=== PATIENT | male | born 1970 | race Caucasian/White ===

== ENCOUNTER → 2019-06-16 | Outpatient (CLI) | payer BC ==
--- NOTE | 2019-06-16 12:06 | CT ---
EXAMINATION TYPE: CT sinus wo con DATE OF EXAM: 06/16/2019 COMPARISON: None HISTORY: Chronic sinusitis CT DLP: 566 mGycm CONTRAST: None The paranasal sinuses are examined in the axial plane at 2 mm thick sections. Reconstructed images i n the coronal plane were obtained. There is dental amalgam scatter artifact Mucosal thickening is through the maxillary sinuses bilaterally. Bilateral ethmoid air cell mucosal thickening is present within anterior mid and posterior ethmoid air cells. The sphenoid sinuses are clear. The frontal sinuses are clear. The septum is evaluated. There is septal deviation to the left. The left ostiomeatal unit is patent. The right ostiomeatal unit is obstructed. IMPRESSIONS: 1. Diffuse mucosal thickening through ethmoid air cells and maxillary sinuses. Findings may be relat ed to chronic sinusitis. Suspicious air-fluid levels are not evident. 2. Left septal deviation. 3. Obstruction of the right ostiomeatal unit.
== END | disposition home or self-care (01) ==
LOC: RADCTMAIN 11:09
PROVIDERS: ATTEND Otolaryngology
DX: J34.2 Deviated nasal septum (principal); J34.89 Other specified disorders of nose and nasal sinuses; J32.9 Chronic sinusitis, unspecified
CPT/HCPCS: 70486

== ENCOUNTER → 2019-07-16 | Day surgery (SDC) | payer BC ==
[2019-07-14 13:23] VITALS: BMI 38.0
[~2019-07-16] MED LIST: BACITRACIN 500 UNIT/GM OINT 28.4 GM TUBE TOPICAL ONE; DEXAMETHASONE SOD PHOS (MDV) 100 MG/10 ML VIAL ONE; DEXAMETHASONE SOD PHOSPHATE 10 MG/ML 1 ML VIAL IV ONE; DEXAMETHASONE SOD PHOSPHATE 4 MG/ML 1 ML VIAL IV ONE; FAMOTIDINE 20 MG/2 ML VIAL IV ONE; GLYCOPYRROLATE 0.2 MG/ML 2 ML VIAL ONE; HYDROcodone/APAP 7.5-325MG 1 EACH TAB PO ONE; HYDROmorphone 0.5 MG/0.5 ML SYRINGE IVP PRN; LACTATED RINGERS 1,000 ML IV SCH; LIDOCAINE 1% 20 ML VIAL (10MG/ML) FOR IV START INTRADERMA PRN; LIDOCAINE 1% INJ 10MG/ML (20 ML MDV) ONE; LIDOCAINE 1%-EPI 1:100,000 20 ML VIAL SUBMUCOSAL ONE; MIDAZOLAM 2 MG/2 ML VIAL IVP ONE; NEOSTIGMINE 1 MG/ML 10 ML VIAL ONE; ONDANSETRON 4 MG/2 ML VIAL IVP ONE; PHENYLEPHRINE-0.9% NACL SYG 1 MG/10 ML SYRINGE ONE; PROPOFOL 10 MG/ML 20 ML VIAL IV ONE; ROCURONIUM BROMIDE 10 MG/ML 10 ML VIAL IV ONE; SUCCINYLCHOLINE CHLORIDE 100 MG/5 ML SYR IV ONE; ceFAZolin 1,000 MG VIAL ONE; fentaNYL (PF) 50 MCG/ML 2 ML AMP ONE
[2019-07-16] MEDS: OXYMETAZOLINE 0.05% NASL SPRAY 1 SPRAY BOTTLE NASAL ONE ×5 (07:45→08:05)
[2019-07-16 07:57] LABS: Glucose,Whole Blood 170 mg/dL (75-99)
[2019-07-16] MEDS: ONDANSETRON 4 MG/2 ML VIAL IVP ONE ×2 (08:02→10:08)
--- NOTE | 2019-07-16 09:42 | P.OP ---
Date of Procedure: 07/16/19 Preoperative Diagnosis: Deviated nasal septum Inferior turbinate hypertrophy Chronic sinusitis Postoperative Diagnosis: Same Procedure(s) Performed: Deviated nasal septum Outfractured and submucous resection inferior turbinates Bilateral endoscopic sinus surgery including bilateral maxillary antrostomy with removal of tissue from maxillary sinuses, bilateral anterior and posterior ethmoidectomy, bilateral frontal sinus exploration with balloon sinus plasty and bilateral sphenoid sinus ostomy with balloon sinus plasty and exploration Anesthesia: POLYA Surgeon: Jerome Rodriguez Estimated Blood Loss (ml): 10 Pathology: other (Nasal septal bone and cartilage and sinus contents) Condition: stable Disposition: PACU Indications for Procedure: This 48-year-old white male whose had difficulties with chronic and recurrent sinusitis as well as chronic nasal airway obstruction and congestion computed tomography scan showed diffuse mucosal thickening in the frontal ethmoid maxillary and sphenoid sinuses Operative Findings: Nasal septum deviated to the left with inferior turbinate hypertrophy bilaterally and mucosal thickening throughout the ethmoid frontal and sphenoid sinuses as well as small polyps in the maxillary sinuses were removed the ostiomeatal complexes were obstructed bilaterally there were polyps throughout the ethmoid sinuses Description of Procedure: The patient was brought into the operative suite and placed in a supine position. The patient underwent induction of general anesthesia with oral endotracheal intubation without difficulty. The patient was prepped and draped in the usual aseptic fashion with the orbits in the operating field for monitoring to the case and the computed tomography scan was on the computer screen for review throughout the case. 1% lidocaine with 1 :100,000 epinephrine was infused submucosally into both sides of the nasal septum as well as the lateral nasal wall and anterior tips of the middle turbinates. While this was taking vasoconstrictive effect the inferior turbinates were infractured with [place] elevator and partial submucous resection of the inferior turbinates was performed with a portion of the submucosal soft tissue and the inferior turbinate bone removed with Coblation device. The inferior turbinates were then outfractured with the [place] elevator. A left hemitransfixion incision was then made with the mucoperichondrial and mucoperiosteal flap on the left elevated. The bony cartilaginous junction was disarticulated and the mucoperiosteal flap on the right was elevated. Bony nasal septal deformities were removed with Alexandru forceps and an inferior cartilaginous strip was removed leaving a full 1.5 cm caudal strut. Checking intranasally this corrected the nasoseptal deformities and the hemitransfixion incision was closed with a running 4-0 chromic suture. Full 0 endoscopic examination is performed bilaterally. Beginning on the left, the middle turbinate was medialized. The maxillary ostium was located with a ballpoint probe and an infundibulotomy was performed followed by uncinectomy. The maxillary antrostomy was enlarged at the expense of the anterior and posterior fontanelle taking care anteriorly not to injure the lacrimal bone. The maxillary sinus was evaluated with 30 and 70 endoscope .[Abnormal appearing tissue was removed from the maxillary sinus]. Anterior and posterior ethmoidectomy were then performed from anterior to posterior to the level of the skull base. The roof of the anterior ethmoid air cells were then cleaned from posterior to anterior using up-biting Blakesley forceps. A balloon sinuplasty of the frontal sinus was then performed using the entellus light guided technique. The frontal sinus was then explored with 30 endoscope.[Abnormal tissue was removed from the frontal sinus]. A balloon sinus plasty was then performed of the sphenoid sinus using the entellus light guided technique. The sphenoid sinus was then explored with 0 endoscope.[Abnormal tissue was removed from the sphenoid sinus]. Attention was then turned to the right where the procedures were followed as they had been on the left. [Nasopore nasal dressing was placed in the middle meatus bilaterally under direct visualization]. Bilateral Jones airway splints coated with bacitracin ointment were placed and sutured transseptally with a 4-0 nylon suture. The patient was suctioned in oral gastric fashion and was allowed to emerge from general anesthesia having tolerated procedure well and was extubated in the operating suite and transferred to the postoperative recovery area in satisfactory condition.
[2019-07-16 09:54] VITALS: TEMP 97
[2019-07-16 10:52] VITALS: RESP 18
[2019-07-16 11:07] LABS: Glucose,Whole Blood 217 mg/dL (75-99)
[2019-07-16 11:34] VITALS: BP 145/83; PULSE 79
== END | disposition home or self-care (01) ==
LOC: OR 07:01
PROVIDERS: ATTEND Otolaryngology
DX: J34.2 Deviated nasal septum (principal); J34.3 Hypertrophy of nasal turbinates; J32.9 Chronic sinusitis, unspecified; I10 Essential (primary) hypertension; E78.5 Hyperlipidemia, unspecified; K21.9 Gastro-esophageal reflux disease without esophagitis; E11.9 Type 2 diabetes mellitus without complications; E78.00 Pure hypercholesterolemia, unspecified; Z79.2 Long term (current) use of antibiotics; Z79.84 Long term (current) use of oral hypoglycemic drugs; Z79.899 Other long term (current) drug therapy
CPT/HCPCS: 30520; 30140; 31267; 31253; 31297; 88305; 88300; J2250; J1100 ×2; J2710; J2405; J0690; J2001; J3010; J2370; J0330; J2704; J1170; 88304

== ENCOUNTER → 2020-07-25 | Outpatient (CLI) | payer BC ==
--- NOTE | 2020-07-25 15:48 | MR ---
EXAMINATION TYPE: MR lumbar spine wo/w con DATE OF EXAM: 07/25/2020 COMPARISON: None HISTORY: Chronic LBP, BLE radiculopathy TECHNIQUE: Multiplanar, multisequence images of the lumbar spine were acquired utilizing 12.5 mL intravenous Carlos avist gadolinium contrast. L1-L2: Normal disc appearance without desiccation. No herniation, protrusion or disc bulging. No ca nal stenosis is present. Foramina are patent bilaterally. L2-L3: Circumferential posterior disc bulge causes minimal mass effect on the thecal sac. There is so me mild facet arthropathy change. L3-L4: Posterior broad-based disc bulge causes anterior mass effect on the thecal sac, no significant foraminal encroachment L4-L5: Mild posterior disc bulge contacts anterior thecal sac. Circumferential extension of endplate disc complex encroaches towards the right neural foramen. There is facet arthropathy. L5-S1: There is a posterior broad-based disc bulge contacts anterior thecal sac and proximal S1 nerve roots. Facet arthropathy is present. Circumferential extension endplate disc complex encroaches on t he neural foramina. Lumbar segments are intact. No paraspinal masses are identified. Conus medullaris has a normal appe arance. There is no significant spinal stenosis. Loss of disc height signal is present at interverteb ral levels especially L3-4, L5-S1, is multilevel spondylosis and endplate discogenic marrow signal ch corine. IMPRESSION: Degenerative disc disease, there is associated facet arthropathy. Correlate for S1 radiculopathies.
== END | disposition home or self-care (01) ==
LOC: RADMRIMAIN 10:27
PROVIDERS: ATTEND Nurse Practitioner Adult Health
DX: M51.36 Other intervertebral disc degeneration, lumbar region (principal); M47.816 Spondylosis without myelopathy or radiculopathy, lumbar region
CPT/HCPCS: 72158; A9585

== ENCOUNTER → 2020-10-15 | Outpatient (CLI) | payer BC ==
--- NOTE | 2020-10-15 12:41 | XR ---
EXAMINATION TYPE: XR chest 2V DATE OF EXAM: 10/15/2020 COMPARISON: NONE TECHNIQUE: PA and lateral views submitted. HISTORY: Presurgical FINDINGS: The lungs are clear and there is no pneumothorax, pleural effusion, or focal pneumonia. Heart size normal. No overt failure. Biapical pleural thickening. IMPRESSION: 1. No acute process.
== END | disposition home or self-care (01) ==
LOC: RADXRMAIN 12:18
PROVIDERS: ATTEND Nurse Practitioner Adult Health
DX: Z01.818 Encounter for other preprocedural examination (principal)
CPT/HCPCS: 71046

== ENCOUNTER → 2020-11-04 | Outpatient (CLI) | payer BC ==
--- NOTE | 2020-11-04 13:38 | XR ---
Lumbar spine with flexion and extension views HISTORY: Back pain 7 views lumbar spine There is no evident spondylolysis . Multilevel spondylosis is present. Minimal retrolisthesis grade 1 L3-4 of approximately 2 mm shows normalized alignment on flexion view, accentuation to 3 mm on exten jonna view. Retrolisthesis grade 1 at L4-5 shows accentuation of approximately 1 mm extension. There i s loss of disc height at intervertebral levels. Sclerosis is present in the posterior elements of the lower lumbar spine. Lumbar vertebral bodies show preserved height and bone mineralization. IMPRESSION: Degenerative disc disease and facet arthropathy, minimal slip and flexion and extension, listhesis as described L3-4, L4-5
== END | disposition home or self-care (01) ==
LOC: RADXRMAIN 09:48
PROVIDERS: ATTEND Specialist
DX: M51.16 Intervertebral disc disorders with radiculopathy, lumbar region (principal); M47.26 Other spondylosis with radiculopathy, lumbar region; M43.16 Spondylolisthesis, lumbar region
CPT/HCPCS: 72114

== ENCOUNTER → 2021-03-22 | Outpatient (CLI) | payer BC ==
--- NOTE | 2021-03-22 09:47 | CT ---
EXAMINATION TYPE: CT lumbar spine wo con DATE OF EXAM: 03/22/2021 COMPARISON: Plain film 11/04/2020, MR lumbar spine 07/25/2020 HISTORY: Spondylosis lumbar region CT DLP: 1155.80 mGycm Automated exposure control for dose reduction was used. An unenhanced CT of the lumbar spine was performed. Bone and soft tissue window settings are submitt ed as well as coronal and sagittal reconstructions. FINDINGS: There is been interval posterior fusion, L3-S1, intervertebral spacing blocks are present, there is a rtifact due to patient's hardware. Alignment is near-anatomic, minimal retrolisthesis grade 1 L3-4 as on prior exam. Loss of disc height at intervertebral levels especially L3-4, L5-S1 similar to prior exam. There are laminectomies present at L5 and L4. The left pedicle screw at L5 breaches the cortex and extends to the level of the psoas muscle on the left at its medial margin level. T12 11 shows a c alcification posterior to the disc causing some mild anterior mass effect on the thecal sac. Some hyp ertrophic changes along the sacroiliac joints noted. L1-L2: Normal disc space height. No disc herniation protrusion or central stenosis. No facet joint arthropathy. No evidence for foraminal encroachment. L2-L3: Posterior broad-based disc bulge causes mild anterior mass effect on the thecal sac. L3-L4: Posterior extension endplate disc complex causes some anterior mass effect on the thecal sac, no significant foraminal encroachment on the left, circumferential extension endplate disc complex en croaches upon the inferior aspect of the neural foramen on the right L4-L5: Circumferential extension endplate disc complex encroaches upon the inferior aspect of the trent ral foramen on the right. L5-S1: Circumferential extension of endplate disc complex results in bilateral foraminal encroachment similar to prior lumbar MRI, posterior extension endplate disc complex is noted. IMPRESSION: Postop changes with extensive artifact. Screw in L5 breaches the cortex laterally on the left. Additi onal findings above.
== END | disposition home or self-care (01) ==
LOC: RADCTMAIN 06:54
PROVIDERS: ATTEND Nurse Practitioner
DX: M51.26 Other intervertebral disc displacement, lumbar region (principal); Z98.890 Other specified postprocedural states
CPT/HCPCS: 72131

== ENCOUNTER → 2021-04-27 | Outpatient (CLI) | payer BC ==
--- NOTE | 2021-04-27 14:02 | XR ---
Left shoulder HISTORY: Left shoulder pain 3 views of the left shoulder Suspect there is an acromial spur. Hypertrophic changes present at the acromioclavicular joint. Bone mineralization, joint spaces and alignment are maintained. Left lung apex as visualized is normal. IMPRESSION: Acromioclavicular joint arthropathy, correlate for impingement, shoulder MRI may be of be nefit.
== END | disposition home or self-care (01) ==
LOC: RADXRMAIN 07:21
PROVIDERS: ATTEND Nurse Practitioner Adult Health
DX: M19.012 Primary osteoarthritis, left shoulder (principal)

== ENCOUNTER → 2021-05-06 | Outpatient (CLI) | payer BC ==
--- NOTE | 2021-05-06 14:46 | MR ---
EXAMINATION TYPE: MR shoulder LT wo con DATE OF EXAM: 05/06/2021 COMPARISON: Plain film 04/27/2023 1 HISTORY: Left shoulder pain TECHNIQUE: Multiplanar, multisequence imaging of the left shoulder is performed without contrast. FINDINGS: Rotator Cuff: Rotator cuff appears attenuated, coronal image #15, findings likely represent an intras ubstance tear Acromioclavicular Joint: Arthropathy changes are present as a mass effect on the musculotendinous ashley ction of supraspinatus. There is a distal acromial spur. Glenohumeral Joint: Intact Labrum: The labrum appears grossly intact given limitation of non-arthrogram study. Biceps Tendon: The long head of biceps is in normal location within bicipital groove, small amount of fluid along the tendon. Bone marrow signal: No focal abnormal marrow signal is appreciated. Other: Some fluid signal the subacromial subdeltoid bursa IMPRESSION: Correlate for impingement, partial intrasubstance tear present within the rotator cuff.
== END | disposition home or self-care (01) ==
LOC: RADMRIMAIN 05:51
PROVIDERS: ATTEND Nurse Practitioner Adult Health
DX: M75.112 Incomplete rotator cuff tear or rupture of left shoulder, not specified as traumatic (principal)

== ENCOUNTER → 2021-06-15 | Outpatient (CLI) | payer BC ==
[2021-06-15 13:16] LABS: Potassium 4.4 mmol/L (3.5-5.1)
[2021-06-15 13:32] LABS: Basophils % (A) 1 %; Eosinophils # (A) 0.3 k/uL (0-0.7); Eosinophils % (A) 4 %; HGB 18.5 gm/dL (13.0-17.5); Lymphocytes # (A) 1.3 k/uL (1.0-4.8); Lymphocytes % (A) 20 %; MCH 30.8 pg (25.0-35.0); MCHC 32.5 g/dL (31.0-37.0); MCV 94.9 fL (80.0-100.0); Mean Platelet Volume 7.1; Monocytes # (A) 0.4 k/uL (0-1.0); Monocytes % (A) 6 %; Neutrophils # (A) 4.4 k/uL (1.3-7.7); Neutrophils % (A) 68 %; Platelet Count 245 k/uL (150-450); RBC 6.01 m/uL (4.30-5.90); WBC 6.5 k/uL (3.8-10.6)
== END | disposition home or self-care (01) ==
LOC: LABPAT 11:39
PROVIDERS: ATTEND Orthopaedic Surgery
DX: Z01.812 Encounter for preprocedural laboratory examination (principal); M75.42 Impingement syndrome of left shoulder
CPT/HCPCS: 36415; 80051; 85025

== ENCOUNTER 2021-06-30 06:11 | Day surgery (SDC) | payer BC ==
[2021-06-28 14:26] VITALS: BMI 31.1
--- NOTE | 2021-06-29 17:18 | HP ---
HISTORY AND PHYSICAL DATE OF SURGERY: 06/30/2021 Kd Dillon is a 50-year-old patient seen with progressive left shoulder pain. We discussed options for treatment. He elected to proceed with left shoulder arthroscopy. Consent was obtained. PAST MEDICAL HISTORY: Hyperlipidemia and gastroesophageal reflux disease. PAST SURGICAL HISTORY: Sinus surgery and spine surgeries. DAILY MEDICATIONS: Atorvastatin, baclofen, diclofenac, gabapentin, [place], Prilosec. ALLERGIES: NONE. SOCIAL HISTORY: He denies tobacco use. PHYSICAL EVALUATION OF THE LEFT SHOULDER: Flexion 150 degrees, abduction 140 degrees, external rotation is 40 degrees with some pain and weakness. Tenderness along the anterolateral acromion and rotator cuff insertion. Impingement is positive at 90. Cross-body adduction sign is positive. Drop-arm sign is positive. Distal neurovascular exam is intact. Left shoulder radiographs revealed a type 3 acromion and evidence for acromioclavicular joint osteoarthritis. An MRI left shoulder revealed impingement with partial rotator cuff tendon tear. IMPRESSION: 1. Left shoulder impingement with partial rotator cuff tear. 2. Left shoulder acromioclavicular joint osteoarthritis. 3. Hyperlipidemia. PLAN: Left shoulder arthroscopy with subacromial decompression, possible arthroscopic rotator cuff repair, Eh procedure and debridement. MMODL / IJN: [id number] /
[2021-06-30] MEDS ORDERED: LACTATED RINGERS 1,000 ML IV SCH (06:43)
[2021-06-30] MEDS ORDERED: MIDAZOLAM 2 MG/2 ML VIAL IV PRN (06:43)
[2021-06-30] MEDS ORDERED: DEXAMETHASONE SOD PHOSPHATE 4 MG/ML 1 ML VIAL IV ONE (06:43)
[2021-06-30] MEDS ORDERED: HYDROmorphone 0.5 MG/0.5 ML SYRINGE IVP PRN (06:43)
[2021-06-30] MEDS ORDERED: ONDANSETRON 4 MG/2 ML VIAL IVP ONE (06:43)
[2021-06-30 07:16] LABS: Glucose,Whole Blood 106 mg/dL (75-99)
[2021-06-30] MEDS ORDERED: MIDAZOLAM 2 MG/2 ML VIAL IVP ONE (07:22)
[2021-06-30] MEDS ORDERED: fentaNYL (PF) 50 MCG/ML 2 ML AMP IVP ONE (07:22)
[2021-06-30] MEDS ORDERED: MIDAZOLAM 2 MG/2 ML VIAL ONE (08:11)
[2021-06-30] MEDS ORDERED: PHENYLEPHRINE-0.9% NACL SYG 1,000 MCG/10 ML SYRINGE ONE (08:11)
[2021-06-30] MEDS ORDERED: PROPOFOL 10 MG/ML 20 ML VIAL IV ONE (08:11)
[2021-06-30] MEDS ORDERED: ROPIVACAINE 5 MG/ML 30 ML VIAL ONE (08:11)
[2021-06-30] MEDS ORDERED: LIDOCAINE 1% INJ 10MG/ML (20 ML MDV) ONE (08:11)
[2021-06-30] MEDS ORDERED: SUCCINYLCHOLINE CHLORIDE VIAL 200 MG/10 ML VIAL IV ONE (08:11)
[2021-06-30] MEDS ORDERED: fentaNYL (PF) 50 MCG/ML 2 ML AMP ONE (08:11)
--- NOTE | 2021-06-30 09:54 | P.OP ---
Date of Procedure: 06/30/21 Preoperative Diagnosis: Left shoulder impingement Postoperative Diagnosis: 1. Left shoulder rotator cuff tear 2. Left shoulder impingement 3. Left shoulder acromioclavicular joint osteoarthritis Procedure(s) Performed: 1. Left shoulder arthroscopic rotator cuff repair 2. Left shoulder arthroscopic subacromial decompression 3. Left shoulder arthroscopic Eh procedure Implants: 14.75 Arthrex swivel lock anchor Anesthesia: GETA, regional (Interscalene block) Surgeon: Mohsen Paz Manager Learning #1: Jonh Donato Estimated Blood Loss (ml): 11 Pathology: none sent Condition: stable Disposition: PACU Indications for Procedure: 50-year-old gentleman seen with progressive left shoulder pain. After treatment options were discussed with him, he elected to proceed with arthroscopy. Operative Findings: See description of procedure Description of Procedure: Patient underwent an interscalene block by department of anesthesia. The patient was then taken to the operative suite. The patient underwent a general anesthetic by the department of anesthesia. The patient was placed into a lateral position and secured. There was appropriate padding of the bony prominence. Left shoulder was then prepped and draped in normal sterile orthopedic fashion. We placed the extremity in 10 pounds of longitudinal traction. A posterior incision was now made for a posterior working portal site. The trocar and cannula were inserted into the glenohumeral joint. Arthroscopy was initiated. Spinal needle was now inserted anteriorly, to ascertain the anterior working portal site. An incision was now made in that area, a trocar was inserted followed by a probe. There was some superficial fraying of the superior labrum. The remaining labrum was stable. The biceps was stable. There was no chondromalacia present. I debrided out the superficial fraying of the labrum. I again probe the labrum and it was found to be stable. Instruments were now removed from glenohumeral joint. Utilizing the posterior working portal site, the trocar and cannula were inserted into the subacromial space. Arthroscopy initiated. I made an incision 2 fingerbreadths lateral to the acromion. I introduced my trocar followed by my ArthroCare ablator. I now began ablating thick subacromial bursal tissue, which exposed the undersurface of the anterior acromion. There was diminished subacromial space. There was a very prominent anterior acromion. A motorized bur was introduced and a subacromial decompression was performed. I also excised some osteophytes off the inferior aspect of the distal clavicle. The AC joint was visualized and noted to be fairly arthritic. The motorized bur was introduced in the anterior portal site and a Eh procedure was performed without difficulty, decompressing the AC joint nicely. I turned my attention to the rotator cuff. There was significant partial tearing along the posterior aspect of the distal supraspinatus. Upon probing the area and noted a full- thickness perforation present. I now debrided the margins getting down to stable tendon tissue. I abraded the footprint with a motorized bur. With the assistance of Donte SHARMA I passed 2 everted mattress suture through good bites of rotator cuff tendon. I then passed all 4 limbs of suture through the eyelet of a 4.75 Arthrex swivel lock anchor. I placed the eyelet into the pre- punch hole. I held it in position while Donte SHARMA tensioned the sutures and deployed the anchor with good fixation noted. All residual suture limbs were now clipped. We had good compression of the tendon along the entire footprint. Instruments now removed from the portal sites. All portal sites were approximated with nylon suture. Sterile dressings were applied followed by a evilder sling. Jonh SHARMA assisted in this complex case. The patient was awakened, transferred to a bed, and taken to recovery in stable condition.
[2021-06-30 10:09] VITALS: RESP 16; TEMP 97.5
[2021-06-30 11:19] VITALS: BP 107/55; PULSE 75
--- NOTE | 2021-06-30 15:38 | P.ANPRN ---
Procedure Note - Anesthesia - Nerve Block Performed Left Interscalene Single Time Out Performed: Yes (721) Date of Procedure: 06/30/21 Procedure Start Time: Procedure Stop Time: Location of Patient: PreOp Indication: Acute Post-Operative Pain, Requested by Surgeon Specifically requested for management of pain by DrLesli: Mohsen Paz Sedation Type: Sedate with meaningful contact maintained Preparation: Sterile Prep Position: Supine Catheter: None Needle Types: Pajunk Needle Gauge: 21 Ultrasound used to visualize needle placement: Yes Ultrasound used to observe medication spread: Yes Injectate: 0.5% Ropivacaine (see comment for volume) (30cc) Blood Aspirated: No Pain Paresthesia on Injection Noted: No Resistance on Injection: Normal Image Stored and Saved: Yes Events: Uneventful and Well Tolerated
== END 2021-06-30 11:30 | disposition home or self-care (01) ==
LOC: OR 06:11
PROVIDERS: ATTEND Orthopaedic Surgery
DX: M75.42 Impingement syndrome of left shoulder (principal); M75.102 Unspecified rotator cuff tear or rupture of left shoulder, not specified as traumatic; M25.812 Other specified joint disorders, left shoulder; M19.012 Primary osteoarthritis, left shoulder; E78.5 Hyperlipidemia, unspecified; J45.909 Unspecified asthma, uncomplicated; E11.9 Type 2 diabetes mellitus without complications; K21.9 Gastro-esophageal reflux disease without esophagitis; Z98.890 Other specified postprocedural states; Z79.891 Long term (current) use of opiate analgesic; Z79.899 Other long term (current) drug therapy
CPT/HCPCS: 64415; 76942; 29826; 29827; 29824; C1713; J2250; J0330; J1100; J0690; J2405; J2001; J3010; J2795; J2370; J2704; J1170

== ENCOUNTER → 2023-02-05 | Outpatient (CLI) | payer BC ==
--- NOTE | 2023-02-11 21:18 | MR ---
EXAMINATION TYPE: MR shoulder RT wo con DATE OF EXAM: 02/05/2023 COMPARISON: Radiographs 01/23/2023 HISTORY: 52-year-old male M25.511 Rt shoulder pain TECHNIQUE: Multiplanar, multisequence imaging of the right shoulder is performed without contrast. FINDINGS: Slight medial subluxation of the long biceps tendon in the upper bicipital. There is some i nterstitial tearing noted within the long head biceps tendon. Heterogeneous signal and thickening of the subscapularis tendon. There is tear of the superior most f ibers but the majority of the tendon appears intact. There is moderate to severe degenerative change at the acromioclavicular joint with marked capsular h ypertrophy and prominence degenerative spurring superiorly. Prominent subchondral marrow signal holt es. Diffuse heterogeneity of both supraspinatus and infraspinatus tendons. Extensive areas of intrasubsta nce changes present throughout. Some shallow articular sided tearing is also present, for example, at the junction of the supraspinatus and infraspinatus tendons measuring 6 mm long and 1.1 cm AP. No discrete tear within the infraspinatus tendon. No atrophy of the rotator cuff musculature. Degenerative and blunted superior labrum. Mild thinning of articular cartilage throughout the glenohu meral joint. There is a small joint effusion. No Hill-Sachs deformity or os acromiale. Heterogeneous red marrow is present and may be seen with ane gustavo, smoking, and chronic disease. IMPRESSION: 1. Moderate diffuse rotator cuff tendinosis. Extensive intrasubstance change within the supraspinatus tendon along with small articular sided tears such as at the junction of the supraspinatus and infra spinatus tendons measuring 6 x 11 mm. 2. Additional partial tear of the superior fibers of the subscapularis tendon allowing for slight med ial subluxation of the long head biceps tendon in the upper bicipital groove. 3. The long head biceps tendon also demonstrates an interstitial tear and mild tenosynovitis. 4. Mild glenohumeral joint OA along with a degenerative and blunted superior labrum. 5. Moderate to severe AC joint OA. Bulky marginal spurring is present along the superior aspect of th e joint.
== END | disposition home or self-care (01) ==
LOC: RADMRIMAIN 10:37
PROVIDERS: ATTEND Orthopaedic Surgery
DX: M19.011 Primary osteoarthritis, right shoulder (principal); M75.111 Incomplete rotator cuff tear or rupture of right shoulder, not specified as traumatic; S46.111A Strain of muscle, fascia and tendon of long head of biceps, right arm, initial encounter; M65.811 Other synovitis and tenosynovitis, right shoulder; X58.XXXA Exposure to other specified factors, initial encounter

== ENCOUNTER → 2023-05-21 | Outpatient (CLI) | payer BC ==
[2023-05-21 18:42] LABS: Anion Gap 12.9 mmol/L (4.00-12.00); Carbon Dioxide 29.1 mmol/L (21.6-31.8); Potassium 4.9 mmol/L (3.5-5.5)
[2023-05-21 18:50] LABS: Basophils # (A) 0.03 X 10*3/uL (0.00-0.10); Basophils % (A) 0.5 %; Eosinophils # (A) 0.07 X 10*3/uL (0.04-0.35); Eosinophils % (A) 1.2 %; HCT 53.3 % (39.6-50.0); HGB 17.9 g/dL (13.0-17.0); Lymphocytes # (A) 1.16 X 10*3/uL (0.90-5.00); Lymphocytes % (A) 19.8 %; MCH 31.6 pg (27.0-32.0); MCHC 33.6 g/dL (32.0-37.0); Mean Platelet Volume 9.5 FL (9.5-12.2); Monocytes # (A) 0.69 X 10*3/uL (0.20-1.00); Monocytes % (A) 11.8 %; NRBC Per 100 WBC 0 X 10*3/uL (0.00-0.01); Neutrophils # (A) 3.89 X 10*3/uL (1.80-7.70); Neutrophils % (A) 66.5 %; Platelet Count 308 X 10*3/uL (140-440); RBC 5.67 X 10*6/uL (4.40-5.60); RDW 12.9 % (11.5-14.5); WBC 5.85 X 10*3/uL (4.50-10.00)
== END | disposition home or self-care (01) ==
LOC: LABWHC1 08:49
PROVIDERS: ATTEND Orthopaedic Surgery
DX: Z01.818 Encounter for other preprocedural examination (principal); I45.10 Unspecified right bundle-branch block; M75.41 Impingement syndrome of right shoulder; R94.31 Abnormal electrocardiogram [ECG] [EKG]
CPT/HCPCS: 36415; 80051; 85025; 93005

== ENCOUNTER → 2023-06-06 | Day surgery (SDC) | payer BC ==
[2023-06-04 10:27] VITALS: BMI 30.5
--- NOTE | 2023-06-05 12:34 | HP ---
HISTORY AND PHYSICAL SCHEDULED DATE OF SURGERY: 06/06/2023. HISTORY OF PRESENT ILLNESS: Kd Dillon is a 52-year-old gentleman, seen with progressive right shoulder pain. After treatment options were discussed with him, he elected to proceed with right shoulder arthroscopy. Consent regarding the procedure was obtained. PAST MEDICAL HISTORY: Hyperlipidemia and asthma. PAST SURGICAL HISTORY: Sinus surgery, lumbar spine surgery, and left shoulder arthroscopy. DAILY MEDICATIONS: 1. Atorvastatin. 2. Prilosec. 3. Aspirin. 4. Motrin. ALLERGIES: None. SOCIAL HISTORY: Denies tobacco use. PHYSICAL EVALUATION OF THE RIGHT SHOULDER: Flexion is 160 degrees. Abduction is 140 degrees. External rotation is 30 degrees with pain and weakness. He has tenderness along the anterolateral acromion and rotator cuff insertion site. Impingement is positive at 90 degrees. Cross-body adduction sign is positive. Drop-arm sign is positive. Distal neurovascular exam is intact. IMAGING STUDIES: Right shoulder radiographs revealed a type 2 acromion, moderate acromioclavicular joint osteoarthritis, and calcific changes of the tendon. MRI right shoulder revealed a partial rotator cuff tear, severe acromioclavicular joint osteoarthritis. Biceps is subluxed with a labral tear. IMPRESSION: 1. Right shoulder impingement with partial rotator cuff tear. 2. Right shoulder acromioclavicular joint osteoarthritis. 3. Right shoulder subluxed long head biceps tendon. 4. Right shoulder labral tear. PLAN: Right shoulder arthroscopy with subacromial decompression, arthroscopic rotator cuff repair, Eh procedure, biceps tenodesis, and debridement of labral tear. MMODL / IJN: [id number] /
[~2023-06-06] MED LIST changes: -BACITRACIN 500 UNIT/GM OINT 28.4 GM TUBE TOPICAL ONE; -DEXAMETHASONE SOD PHOS (MDV) 100 MG/10 ML VIAL ONE; -DEXAMETHASONE SOD PHOSPHATE 10 MG/ML 1 ML VIAL IV ONE; -DEXAMETHASONE SOD PHOSPHATE 4 MG/ML 1 ML VIAL IV ONE; -FAMOTIDINE 20 MG/2 ML VIAL IV ONE; -GLYCOPYRROLATE 0.2 MG/ML 2 ML VIAL ONE; -HYDROcodone/APAP 7.5-325MG 1 EACH TAB PO ONE; +LIDOCAINE 1% (10MG/ML) FOR IV START INTRADERMA PRN; -LIDOCAINE 1% 20 ML VIAL (10MG/ML) FOR IV START INTRADERMA PRN; -LIDOCAINE 1% INJ 10MG/ML (20 ML MDV) ONE; -LIDOCAINE 1%-EPI 1:100,000 20 ML VIAL SUBMUCOSAL ONE; -MIDAZOLAM 2 MG/2 ML VIAL IVP ONE; -NEOSTIGMINE 1 MG/ML 10 ML VIAL ONE; -PHENYLEPHRINE-0.9% NACL SYG 1 MG/10 ML SYRINGE ONE; -PROPOFOL 10 MG/ML 20 ML VIAL IV ONE; -ROCURONIUM BROMIDE 10 MG/ML 10 ML VIAL IV ONE; -SUCCINYLCHOLINE CHLORIDE 100 MG/5 ML SYR IV ONE; -ceFAZolin 1,000 MG VIAL ONE; +droPERidol 5 MG/2 ML VIAL IVP ONE; -fentaNYL (PF) 50 MCG/ML 2 ML AMP ONE
== END ==
LOC: OR 05:42
PROVIDERS: ATTEND Orthopaedic Surgery
DX: Z53.8 Procedure and treatment not carried out for other reasons (principal); M75.111 Incomplete rotator cuff tear or rupture of right shoulder, not specified as traumatic; M19.011 Primary osteoarthritis, right shoulder; M75.41 Impingement syndrome of right shoulder; S43.491A Other sprain of right shoulder joint, initial encounter; J45.909 Unspecified asthma, uncomplicated; E78.5 Hyperlipidemia, unspecified; Z98.890 Other specified postprocedural states; Z79.82 Long term (current) use of aspirin; Z79.899 Other long term (current) drug therapy

== ENCOUNTER 2023-06-28 11:01 | Day surgery (SDC) | payer BC ==
[2023-06-27 08:55] VITALS: BMI 30.5
--- NOTE | 2023-06-27 22:32 | HP ---
HISTORY AND PHYSICAL DATE OF SURGERY: 06/28/2023. HISTORY OF PRESENT ILLNESS: Kd Dillon is a 52-year-old gentleman seen with progressive right shoulder pain. Options for treatment were discussed with him. He elected to proceed with right shoulder arthroscopy. Consent was obtained. PAST MEDICAL HISTORY: Hyperlipidemia, asthma. PAST SURGICAL HISTORY: Sinus surgery, lumbar spine surgery, left shoulder arthroscopy. DAILY MEDICATIONS: 1. Atorvastatin. 2. Gabapentin. 3. Prilosec. 4. Aspirin. 5. Motrin. ALLERGIES: None. SOCIAL HISTORY: Denies tobacco use. PHYSICAL EVALUATION OF THE RIGHT SHOULDER: Flexion is 160 degrees, abduction is 140 degrees, external rotation is 30 degrees with pain and weakness. He has tenderness along the anterolateral acromion and rotator cuff insertion site. Impingement is positive at 90 degrees. Cross-body adduction sign is positive. Drop-arm sign is positive. Distal neurovascular exam is intact. IMAGING STUDIES: Right shoulder radiographs revealed a type 2 acromion along with acromioclavicular joint osteoarthritis and cystic changes as well as calcific changes of the tuberosity. Right shoulder MRI revealed a partial rotator cuff tear, severe acromioclavicular joint osteoarthritis, biceps tendon, which was subluxed along with labral tear. IMPRESSION: 1. Right shoulder impingement with partial rotator cuff tear. 2. Right shoulder acromioclavicular joint osteoarthritis. 3. Right shoulder subluxed bunion and biceps tendon. 4. Right shoulder labral tear. PLAN: Right shoulder arthroscopy with subacromial decompression, arthroscopic rotator cuff repair, Eh procedure, biceps tenodesis, and debridement of labral tear. MMODL / IJN: [id number] /
[~2023-06-28 11:01] MED LIST changes: +DEXAMETHASONE SOD PHOSPHATE 4 MG/ML 1 ML VIAL IV ONE; -LACTATED RINGERS 1,000 ML IV SCH; -droPERidol 5 MG/2 ML VIAL IVP ONE; +droPERidol 5 MG/2 ML VIAL IVP PRN
[2023-06-28] MEDS: LACTATED RINGERS 1,000 ML IV SCH ×2 (11:23→13:08)
[2023-06-28 11:44] LABS: Glucose,Whole Blood 115 mg/dL (70-110)
[2023-06-28] MEDS ORDERED: MIDAZOLAM 2 MG/2 ML VIAL IVP ONE ×4 (12:12→15:27)
[2023-06-28] MEDS ORDERED: PROPOFOL 10 MG/ML 20 ML VIAL IV ONE (13:05)
[2023-06-28] MEDS ORDERED: ROCURONIUM 10 MG/ML (5 ML VIAL) IV ONE (13:05)
[2023-06-28] MEDS ORDERED: MIDAZOLAM 2 MG/2 ML VIAL ONE (13:05)
[2023-06-28] MEDS ORDERED: HYDROmorphone (PF) 1 MG/ML ONE (13:05)
[2023-06-28] MEDS ORDERED: fentaNYL (PF) 50 MCG/ML 2 ML AMP ONE (13:05)
[2023-06-28] MEDS ORDERED: NEOSTIGMINE 1 MG/ML 10 ML VIAL ONE (13:05)
[2023-06-28] MEDS ORDERED: ROPIVACAINE 5 MG/ML 30 ML VIAL ONE (13:05)
[2023-06-28] MEDS ORDERED: DEXAMETHASONE SOD PHOSPHATE 4 MG/ML 1 ML VIAL ONE (13:05)
[2023-06-28] MEDS ORDERED: LIDOCAINE 1% INJ 10MG/ML (20 ML MDV) ONE (13:05)
[2023-06-28] MEDS ORDERED: GLYCOPYRROLATE 0.2 MG/ML 2 ML VIAL ONE (13:05)
[2023-06-28] MEDS ORDERED: SUCCINYLCHOLINE CHLORIDE 200 MG/10 ML VIAL IV ONE (13:05)
[2023-06-28] MEDS ORDERED: HYDROcodone/APAP 7.5-325MG 1 EACH TAB PO ONE ×2 (14:10→16:10)
[2023-06-28] MEDS ORDERED: LACTATED RINGERS 1,000 ML IV ONE (14:28)
--- NOTE | 2023-06-28 14:52 | P.OP ---
Date of Procedure: 06/28/23 Preoperative Diagnosis: Right shoulder impingement Postoperative Diagnosis: 1. Right shoulder rotator cuff tear 2. Right shoulder impingement 3. Right shoulder acromioclavicular joint osteoarthritis 4. Right shoulder superficial labral tear Procedure(s) Performed: 1. Right shoulder arthroscopic rotator cuff repair 2. Right shoulder arthroscopic subacromial decompression 3. Right shoulder arthroscopic Eh procedure 4. Right shoulder arthroscopic debridement labral tear Implants: 1Arthrex 4.75 swivel lock anchor Anesthesia: GETA, regional (Interscalene block) Surgeon: Mohsen Paz Sourcing Assistant #1: Jonh Donato Estimated Blood Loss (ml): 7 Pathology: none sent Condition: stable Disposition: PACU Indications for Procedure: 52-year-old gentleman seen with progressive right shoulder pain. After having t reatment options discussed, he elected to proceed with arthroscopy. Operative Findings: See description of procedure Description of Procedure: Patient underwent an interscalene block by department of anesthesia. The patient was then taken to the operative suite. The patient underwent a general anesthetic by the department of anesthesia. The patient was placed into a lateral position and secured. There was appropriate padding of the bony prominence. Right shoulder was then prepped and draped in normal sterile orthopedic fashion. We placed the extremity in 10 pounds of longitudinal traction. A posterior incision was now made for a posterior working portal site. The trocar and cannula were inserted into the glenohumeral joint. Arthroscopy was initiated. Spinal needle was now inserted anteriorly, to ascertain the anterior working portal site. An incision was now made in that area, a trocar was inserted followed by a probe. There was some superficial tearing of the superior labrum. The biceps was stable. The remaining labrum was stable. There was no chondromalacia. I introduced a motorized shaver and debrided that labral tear. The residual labrum was stable. Instruments were now removed from the glenohumeral joint.] Utilizing the posterior working portal site, the trocar and cannula were inserted into the subacromial space. Arthroscopy initiated. I made an incision 2 fingerbreadths lateral to the acromion. I introduced my trocar followed by my ArthroCare ablator. I now began ablating thick subacromial bursal tissue, which exposed the undersurface of the anterior acromion. There was diminished subacromial space. There was a very prominent anterior acromion. A motorized bur was introduced and a subacromial decompression was performed. I also excised some osteophytes off the inferior aspect of the distal clavicle. The AC joint was visualized and noted to be fairly arthritic. The motorized bur was introduced in the anterior portal site and a Eh procedure was performed without difficulty, decompressing the AC joint nicely. I turned my attention to the rotator cuff. There was a I debrided the margins gained down to stable tendon tissue. I abraded the footprint with a motorized bur. With the assistance of Donte SHARMA past 3 everted mattress sutures through good bites of rotator cuff tendon. I punched hole and the footprint area for insertion of an anchor. All 6 limbs of suture were passed through the eyelet of a Arthrex 4.75 swivel lock anchor. I placed the eyelet into her prepunched hole. I held it in position while Donte SHARMA tensioned all 6 limbs of suture and deployed the anchor with good fixation noted. All residual suture limbs were now clipped. We had good compression of the tendon along the entire footprint. Instruments now removed from the portal sites. All portal sites were approximated with nylon suture. Sterile dressings were applied followed by a shoulder sling. Jonh SHARMA assisted in this complex case. The patient was awakened, transferred to a bed, and taken to recovery in stable condition.
[2023-06-28 15:08] VITALS: TEMP 97
[2023-06-28] MEDS ORDERED: fentaNYL (PF) 50 MCG/ML 2 ML AMP IVP ONE (15:13)
[2023-06-28 15:56] VITALS: RESP 20
[2023-06-28] MEDS ORDERED: HYDROcodone/APAP 7.5-325MG 1 EACH TAB ONE (16:03)
[2023-06-28] MEDS ORDERED: hydrALAZINE HCL 20 MG/ML 1 ML VIAL ONE (16:20)
[2023-06-28] MEDS ORDERED: hydrALAZINE HCL 20 MG/ML 1 ML VIAL IVP ONE (16:23)
[2023-06-28 17:07] VITALS: BP 162/89; PULSE 80
--- NOTE | 2023-06-29 10:45 | P.ANPRN ---
Procedure Note - Anesthesia - Nerve Block Performed Right Interscalene Single Time Out Performed: Yes Date of Procedure: 06/28/23 Procedure Start Time: 12:12 Procedure Stop Time: 12:20 Location of Patient: PreOp Indication: Acute Post-Operative Pain, Requested by Surgeon Sedation Type: Sedate with meaningful contact maintained Preparation: Sterile Prep Position: Supine Needle Types: Pajunk Needle Gauge: 21 Ultrasound used to visualize needle placement: Yes Ultrasound used to observe medication spread: Yes Blood Aspirated: No Pain Paresthesia on Injection Noted: No Resistance on Injection: Normal Image Stored and Saved: Yes Events: Uneventful and Well Tolerated (Ropivacaine 0.5% 20 mL plus dexamethasone 4 mg)
== END 2023-06-28 17:20 | disposition home or self-care (01) ==
LOC: OR 11:01
PROVIDERS: ATTEND Orthopaedic Surgery
DX: S46.011A Strain of muscle(s) and tendon(s) of the rotator cuff of right shoulder, initial encounter (principal); S43.491A Other sprain of right shoulder joint, initial encounter; M19.011 Primary osteoarthritis, right shoulder; M25.811 Other specified joint disorders, right shoulder; M75.41 Impingement syndrome of right shoulder; J45.909 Unspecified asthma, uncomplicated; E78.5 Hyperlipidemia, unspecified; Z79.82 Long term (current) use of aspirin; Z79.1 Long term (current) use of non-steroidal anti-inflammatories (NSAID); Z79.899 Other long term (current) drug therapy; X58.XXXA Exposure to other specified factors, initial encounter
CPT/HCPCS: 64415; 29824; 29826; 29827; C1713; J2250; J0330; J0360; J1100; J2710; J0690; J2405; J2001; J3010; J1170; J2795; J2704

== ENCOUNTER → 2023-07-20 | Outpatient (CLI) | payer BC ==
--- NOTE | 2023-07-20 15:58 | XR ---
EXAMINATION TYPE: XR wrist limited bilateral DATE OF EXAM: 07/20/2023 COMPARISON: NONE HISTORY: 52-year-old male M25.531, wrist pain TECHNIQUE: 2 views each side FINDINGS: Slight positive ulnar variance on the left. The radiocarpal and distal radioulnar joints as well as the midcarpal compartments appear intact. There is mild degenerative spurring at the first C MC joints. More mild to moderate degenerative change on the right. No acute fracture, subluxation, di slocation. IMPRESSION: [id number] osteoarthritic change at the base of the thumb on the right and mild on the left. Th ere is also slight positive ulnar variance at the left wrist. No acute osseous abnormality on either side.
== END | disposition home or self-care (01) ==
LOC: RADXRMAIN 09:51
PROVIDERS: ATTEND Internal Medicine
DX: M19.031 Primary osteoarthritis, right wrist (principal)